=== PATIENT | male | born 1970 | race Caucasian/White ===

== ENCOUNTER 2017-01-08 08:57 | Outpatient (CLI) ==
--- NOTE | 2017-01-08 12:21 | MRI ---
EXAM: Lumbar spine MRI without contrast. HISTORY: Pain. COMPARISON: None. TECHNIQUE: Multiplanar, multisequence MR images were acquired of the lumbar spine without contrast. FINDINGS: Five lumbar-type vertebra are present. There is minor mid lumbar levoscoliosis centered at L3-4 and mild accentuation of the usual lumbar lordosis. There is 1 mm retrolisthesis of L4 on L 5 and 1 mm degenerative anterolisthesis of L5 on S1. The lumbar vertebra are normal in height and i ntrinsic bone marrow signal. There is minor chronic concavity of the left superior endplate of T11. There is ventral spondylosis in the lower thoracic and lumbar spine with minor reactive marrow elvi nges along the anterior endplates and at L1-2 there is mild bright STIR signal edema along the anter ior endplates. There is mild disc space narrowing at L2-3 and L3-4 with disc desiccation at L3-4. Conus medullaris ends at L1 and has normal signal intensity. Canal diameter is developmentally narr ow. The visualized liver, spleen and adrenal glands are unremarkable. There is mild right caliectasis w hich is considered within normal variation. There is a small sub-centimeter simple left renal cyst. There are no paravertebral masses. T12-L1: The intervertebral disc is normal. L1-2: There is a minimal disc bulge that is considered physiologic and mild bilateral hypertrophic facet arthropathy and ligamentum flavum hypertrophy. There is no central canal stenosis or foramina l stenosis. L2-3: There is a mild disc bulge and mild bilateral hypertrophic facet arthropathy and ligamentum f lavum hypertrophy. A small synovial cyst is present along the posterior inferior margin of the left facet joint. There is minor right and mild left neural foraminal stenosis. L3-4: There is a mild disc bulge and bilateral hypertrophic facet arthropathy and ligamentum flavum hypertrophy. This causes mild right and minor left foraminal stenosis. There is no central canal stenosis. L4-5: There is a mild disc bulge with a central annular fissure that mildly effaces the ventral the michael sac. Mild bilateral hypertrophic facet arthropathy and ligamentum flavum hypertrophy is present . This causes triangulation of the thecal sac and mild bilateral foraminal stenosis. L5-S1: The intervertebral disc is normal. IMPRESSION: 1. Minor lumbar degenerative spondylosis. 2. No pars interarticularis defects, disc herniations or spinal stenosis.
== END 2017-01-08 08:58 | disposition home or self-care (01) ==
LOC: RAD 08:57
PROVIDERS: ATTEND Physician Assistant
DX: M54.5 Low back pain (principal)

== ENCOUNTER 2017-01-09 08:30 | Outpatient (CLI) ==
[2017-01-09 09:09] LABS: ALBUMIN/GLOBULIN RATIO 1.14; ANION GAP 12.5; BILIRUBIN,TOTAL 0.45 mg/dL (0.00-1.20); BUN/CREATININE RATIO 19.35; CALCIUM 9.5 mg/dL (8.2-10.2); CHOL/HDL RATIO 5.7 (4.5-6.4); CREATININE 0.93 mg/dL (0.60-1.10); POTASSIUM 4.5 mmol/L (3.5-5.1); TOTAL PROTEIN 7.5 g/dL (6.4-8.2)
--- NOTE | 2017-01-10 04:57 | MRI ---
EXAM: Thoracic spine MRI without contrast. HISTORY: Thoracic spine pain. COMPARISON: Lumbar spine MRI 01/08/2017. TECHNIQUE: Multiplanar, multisequence MR images were acquired of the thoracic spine without contras t. FINDINGS: 12 rib-bearing thoracic vertebra are present. The thoracic vertebra are normal in height , alignment and intrinsic bone marrow signal. Small ventral osteophytes are present in the mid and lower thoracic spine with reactive marrow changes along the anterior superior endplates of T4 and T1 2 and along the anterior endplates from T5-6 to T7-8. There is mild endplate irregularity in the mi d and lower thoracic spine and there is probable disc desiccation at T5-6 and T6-7 and a chronic Selvin morl's node at T11. Canal diameter is developmentally normal. The thoracic cord has normal signal intensity. Conus medullaris ends at L1. Scattered perineural cysts are present in the thoracic spi ne. The visualized liver, spleen, adrenal glands and upper pole of the right kidney are unremarkable. S imple left renal cysts are present. T1-2, T2-3: Intervertebral discs are normal. T3-4: The intervertebral disc is normal. There is a right hypertrophic facet arthropathy and moder ately severe right neural foraminal stenosis. T4-5: The intervertebral disc is normal. There is right hypertrophic facet arthropathy and moderat e right foraminal stenosis. T5-6 there is a minor disc bulge that is asymmetric to the left. There is no central canal stenosis or foraminal stenosis. T6-7, T7-8, T8-9: There are minor disc bulges without central canal stenosis or foraminal stenosis. T10-11, T11-12, T12-L1: The intervertebral discs are normal. There is no central canal stenosis or foraminal stenosis. IMPRESSION: 1. Mild thoracic degenerative spondylosis. 2. No thoracic spinal stenosis or disc herniations. 3. Moderately severe right T3-4 and moderate right T4-5 foraminal stenosis.
== END 2017-01-09 08:31 | disposition home or self-care (01) ==
LOC: RAD 08:30
PROVIDERS: ATTEND Physician Assistant
DX: M54.6 Pain in thoracic spine (principal); I10 Essential (primary) hypertension
CPT/HCPCS: 36415; 80053; 80061